=== PATIENT | male | born 1940 | race Caucasian/White ===

== ENCOUNTER 2021-03-11 16:41 | Emergency (ER) | payer MEDICARE, OTHER ==
[~2021-03-11 16:41] MED LIST: ASPIRIN EC81 MG PO; FINASTERIDE5 MG PO; FISH OIL 1,2001 EAC1 PO; HYTRIN5 MG PO; MELOXICAM15 MG PO; PERCOCET 5-3251 EACH PO; PRESERVISION A1 EACH PO; ROSUVASTATIN CAL5 MG PO; SYNTHROID88 MCG PO; ZESTRIL5 MG PO
[2021-03-11 17:26] LABS: BASOPHIL 1.5 % (0-2); EOSINOPHIL 2.6 % (0-7); HCT 43.7 % (42.0-52.0); LYMPHOCYTE 28.8 % (15-48); MCH 31.1 pg (25.0-31.0); MCHC 34.3 g/dL (32.0-36.0); MCV 90.7 fL (78.0-100.0); MONOCYTE 9.3 % (0-12); MPV 9.8 fL (6.0-9.5); NEUTROPHIL 57.5 % (41-80); NRBC 0; PLT 200 K/uL (150-400); RBC 4.82 M/uL (4.70-6.00); RDW 12.6 % (11.5-14.0); WBC 6.9 K/uL (4.0-10.5)
[2021-03-11 17:26] LABS: BILIRUBIN NEGATIVE (NEGATIVE); BLOOD 3+ Ery/uL (NEGATIVE); COLOR YELLOW (YELLOW); GLUCOSE (U) NORMAL (NORMAL); LEUKOCYTES 1+ Leu/uL (NEGATIVE); NITRITE NEGATIVE (NEGATIVE); PROTEIN NEGATIVE (NEGATIVE); SPECIFIC GRAVITY >=1.030 (1.001-1.030); UROBILINOGEN 0.2 mg/dL (0.2-1.0); pH 5.5 (5.0-9.0)
[2021-03-11 17:27] LABS: CLARITY SLIGHTLY HAZY (CLEAR)
[2021-03-11 17:43] LABS: BACTERIA TRACE; CALCIUM OXALATE CRYSTALS TRACE; SQUAMOUS EPITHELIAL CELLS RARE; URINARY RBC 20-50
[2021-03-11 17:56] LABS: ALBUMIN 3.9 g/dL (3.4-5.0); BILIRUBIN - TOTAL 0.5 mg/dL (0.2-1.0); BUN/CREAT RATIO (CALC) 18.6 RATIO; CREATININE 0.97 mg/dL (0.67-1.17); GLOBULIN (CALCULATION) 3.6 g/dL; POTASSIUM 4.1 mmol/L (3.5-5.1); TOTAL PROTEIN 7.5 g/dL (6.4-8.2)
[2021-03-11] MEDS ORDERED: ONDANSETRON ODT4 MG PO (18:41)
[2021-03-11] MEDS ORDERED: ENDOCET 5-3251 EACH PO (18:41)
[2021-03-11] MEDS ORDERED: FLOMAX0.4 MG PO (18:41)
== END 2021-03-11 19:16 | disposition home or self-care (01) ==
LOC: FER 16:41
PROVIDERS: Emergency Medicine
DX: N13.2 Hydronephrosis with renal and ureteral calculous obstruction (principal)
CPT/HCPCS: 36415; 80053; 81001; 85025; J1170; J2405; J7030